=== PATIENT | male | born 2000 | race Caucasian/White ===

== ENCOUNTER 2023-02-03 00:40 | Emergency (ER) | payer OTHER, SELFPAY ==
[2023-02-03 00:46] VITALS: BP 155/99; PULSE 87; RESP 16; TEMP 36.9; O2SAT 98; BMI 28.4
--- NOTE | 2023-02-03 00:54 | ED.GENADULT ---
HPI - General Adult General Time Seen by Provider: 00:54 Date Seen: 02/03/23 Chief complaint: Ear/Nose/Throat Problem Stated complaint: right ear pain Time Seen by Provider: 02/03/23 00:54 Source: patient and RN notes reviewed Mode of arrival: ambulatory Limitations: no limitations History of Present Illness HPI narrative: Ajit is a very pleasant 22-year-old gentleman previously healthy who comes to the emergency room for evaluation of right ear pain. Patient notes that last week he had some congestion with some phlegm in his throat but he states that is much improved. He denies a cough or runny nose or fever. Two days ago he noticed some right ear pain and this has gradually worsened and it is significantly intensified over the last 5-6 hours. He has not noticed any drainage from his right ear. He has tried Tylenol and ibuprofen at home but has persistent ear pain. He notes the pain radiates into the right side of his jaw and behind his ear. He agrees that he has a muffled hearing sensation on that side. He states that there may be an a Racer from a neck by can occult pencil in this ear. He states that that happened 10-12 years ago and he has never had any problems from it. He has not had ear infections in the past. Related Data Previous Rx's Medication Instructions Recorded amoxicillin 500 mg tablet 500 mg PO TID #15 tabs 02/03/23 oxycodone 5 mg capsule 5 mg PO Q6H PRN pain #8 caps 02/03/23 Allergies Allergy/AdvReac Type Severity Reaction Status Date / Time No Known Drug Allergies Allergy Verified 02/03/23 00:49 Review of Systems Status of ROS: Reports: 6 or more systems reviewed and unremarkable except as noted in History and below Const: Denies: fever or chills Eyes: Denies: change in vision ENMT: Reports: neck pain, ear pain and change in hearing (Muffled on the right); Denies: throat pain, throat swelling, difficulty swallowing, hoarseness, mouth pain, ear discharge, nasal discharge or nasal congestion Cardio: Denies: chest pain or shortness of breath with exertion Resp: Denies: shortness of breath or cough GI: Denies: abdominal pain or difficulty swallowing Musculo: Reports: neck pain Allergy/Immuno: Denies: throat swelling PFSH PFSH Social History Smoking Status: Unknown if ever smoked How often do you have a drink containing alcohol: never How often do you have six or more drinks on one occasion: Never AUDIT-C Alcohol total score: 0 Non-prescribed substance use: denies use service: No Exam Narrative: Exam Narrative: Alert and oriented. In obvious discomfort. Mentating normally. Eyes are clear. Left TM within normal limits. Right TM is obscured by a large amount of cerumen in the ear canal. I was able to remove a small amount. Patient appears to have significant discomfort. However, no pain with manipulation of the external ear. No unusual swelling around the ear and there is no lymphadenopathy. Heart with regular rate and mid rhythm. Oral cavity with moist mucous membranes. Neck is supple without lymphadenopathy Lungs are clear bilaterally. Moving all extremities. Const: Vital Signs, click to edit/add: Vital Signs - 24 hr 02/03/23 00:46 02/03/23 01:16 Temperature 98.5 F 98.5 F Pulse Rate [Right Pulse Oximeter] 87 Respiratory Rate 16 Blood Pressure [Ri ght Upper Arm] 155/99 H Pulse Oximetry 98 Oxygen Delivery Me thod Room Air Documenting provider has reviewed patient's vital signs: yes Course Course ED Course: Differential diagnosis includes otitis externa, otitis media, mechanical discomfort from large cerumen impaction. Patient will need to have this ear irrigated so that I am able to visualize TM. However, he would not be able to tolerate it at this time. I discussed with him past history of any alcohol or narcotic addiction any adamantly denies. A check of the [facility] shows no recent prescriptions. Therefore will give him oxycodone 5 mg and ibuprofen 400 mg p.o. will irrigate here. And revision alive. Reevaluation(s) Reevaluation #1: Patient noted to be intolerant of any wax removal. I was only able to remove a small amount with the use of the small alligators. Patient was given oxycodone 5 mg and ibuprofen 5 400 mg. More tolerant and was able to undergo some ear irrigation. Unfortunately this did not produce a lot of wax. We also tried to use some does diluted peroxide. With this however I was able to use alligator to pull small amounts of the wax away. At last a large plug came and indeed it included and a Racer. Examination of the ear canal shows it to be erythematous. TM itself is intact and does not appear to be problematic. Vital Signs Vital signs: Initial Vital Signs Temperature 98.5 F 02/03/23 00:46 Temperature Source Temporal Artery Scan 02/03/23 00:46 Pulse Rate 87 02/03/23 00:46 Pulse Rhythm Regular 02/03/23 00:46 Respiratory Rate 16 02/03/23 00:46 Blood Pressure 155/99 H 02/03/23 00:46 Blood Pressure Mean 117 H 02/03/23 00:46 Blood Pressure Position Sitting 02/03/23 00:46 Pulse Oximetry 98 02/03/23 00:46 Oxygen Delivery Method Room Air 02/03/23 00:46 Vital Signs Temperature 98.5 F 02/03/23 00:46 Pulse Rate 87 02/03/23 00:46 Respiratory Rate 16 02/03/23 00:46 Blood Pressure 155/99 H 02/03/23 00:46 Pulse Oximetry 98 02/03/23 00:46 Oxygen Delivery Method Room Air 02/03/23 00:46 Temperature 98.5 F 02/03/23 01:16 Pulse Rate 87 02/03/23 00:46 Respiratory Rate 16 02/03/23 00:46 Blood Pressure 155/99 H 02/03/23 00:46 Pulse Oximetry 98 02/03/23 00:46 Oxygen Delivery Method Room Air 02/03/23 00:46 Medical Decision Making MDM Narrative Medical decision making narrative: 1. Otitis externa-patient does have erythematous ear canal. This was probably caused by a water from the shower trapped behind the eraser and cerumen plug. Will use Ciprodex 4 drops to the right ear 4 times daily for 2 days and then 3 times a day for the next 2-3 days. Because all pharmacies are closed and we do not have our [facility] meds machine working tonight we will give him dose from our supply. I would ask that patient follow-up with our ENT or the clinic for recheck later this week. 2. Foreign bodies/Cerumen impaction-relieved. 3. Dental pain-I think this most likely is a referred pain from the ear. Further examination shows tenderness when palpating both the bottom and upper molars on the right. However I do not see any swelling or drainage at this time. I would ask patient to see his dentist if he is not noting improvement. If he is unable to see the dentist he may start amoxicillin 500 mg t.i.d. p.r.n. which was sent to his pharmacy. 4. Disposition-home at this time. Return to the ER for purulent drainage from the ear, high fever and as needed. Discharge Plan Discharge Clinical Impression: Foreign body Otitis externa Qualifiers: Otitis externa type: unspecified type Chronicity: unspecified Laterality: right Qualified Code(s): H60.91 - Unspecified otitis externa, right ear Patient Disposition: Home w/ Parent or Adult Condition: Improved Additional Instructions: 1. You will continue the ear drops at home, 4 drops into the right ear 4 times daily for 5 days. Please follow up at the clinic at the end of this week for recheck to ensure improvement. You may call [phone] for an appointment with our ENT. 2. Alternate ibuprofen and Tylenol every 4 hours as you were doing at home. Oxycodone is a narcotic and may be used sparingly for pain not relieved by ibuprofen or Tylenol. We will send a dose home with you tonight as there are no pharmacies open. We will give a few tablets of this medication through your pharmacy. 3. Return to the emergency room for vomiting, worsening symptoms and as needed. I did send a prescription in for amoxicillin should your dental pain continue and you are unable to see a dentist. I do not see any evidence of swelling or drainage tonight. I suspect the tooth pain is likely from your ear pain. However, should your dental pain increased start amoxicillin as directed. Prescriptions: New oxycodone 5 mg capsule 5 mg PO Q6H PRN (Reason: pain) Qty: 8 0RF amoxicillin 500 mg tablet 500 mg PO TID Qty: 15 0RF Follow Up/Referrals: Clayton Jeffery MD [Primary Care Provider] - Stand Alone Forms: [employer] Info Instructions
--- NOTE | 2023-02-03 00:58 | ED.NURSE ---
Dr. Trinh in room.
[2023-02-03 01:16] VITALS: TEMP 36.9
[2023-02-03] MEDS: IBUPROFEN 200 MG TABLET 400 MG PO (01:16)
[2023-02-03] MEDS: OXYCODONE 5 MG TABLET PO ×3 (01:19→02:57)
--- NOTE | 2023-02-03 01:34 | ED.NURSE ---
Waiting for meds to work and then will irrigate ear.
--- NOTE | 2023-02-03 02:25 | ED.NURSE ---
Ear irrigated with approximately 500 cc of warm saline. Also irrigated with peroxide and saline. Wax softened enough to have Dr. Trinh pull out more wax and once pulling out wax, an eraser was pulled out of his ear. Patient states he got an eraser stuck in his ear about 10 years ago and was never seen by anyone. Pt states he can now hear better but still in pain.
== END 2023-02-03 03:02 | disposition home or self-care (01) ==
PROVIDERS: Emergency Provider Family Medicine; PCP Family Medicine
DX: H60.91 Unspecified otitis externa, right ear (principal); H61.21 Impacted cerumen, right ear
CPT/HCPCS: 99282; 99283; A9270

== ENCOUNTER 2023-02-03 19:17 | Emergency (ER) | payer OTHER, SELFPAY ==
[2023-02-03 19:46] VITALS: BP 121/80; PULSE 83; RESP 18; TEMP 36.7; O2SAT 98
== END 2023-02-03 22:00 | disposition left against medical advice (07) ==
PROVIDERS: Emergency Provider Family Medicine; PCP Family Medicine
DX: Z53.21 Procedure and treatment not carried out due to patient leaving prior to being seen by health care provider (principal)